=== PATIENT | male | born 2000 | race African-American/Black ===

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

== ENCOUNTER 2021-05-27 23:54 | Emergency (ER) | payer OTHER ==
[~2021-05-27] VITALS: Ht 182.9 cm; Wt 85.0 kg
[~2021-05-27 23:54] MED LIST: ALBU8HFA IH
[2021-05-27 23:56] VITALS: BP 131/62
[2021-05-28 00:33] LABS: COVID AG,FIA SOURCE NASOPHARYNGEAL
== END 2021-05-28 01:22 | disposition home or self-care (01) ==
LOC: EMS 23:55
DX: U07.1 COVID-19 (principal)
CPT/HCPCS: 87426; 99283; U0003

== ENCOUNTER 2021-11-25 10:58 | Emergency (ER) | payer OTHER ==
[~2021-11-25] VITALS: Ht 185.4 cm; Wt 81.8 kg
[2021-11-25] MEDS ORDERED: ACETAMINOPHEN 325 MG TABLET PO ONE (12:00)
[2021-11-25] MEDS ORDERED: IBUPROFEN 400 MG TABLET PO ONE (12:00)
[2021-11-25 16:03] VITALS: BP 135/76
== END 2021-11-25 16:08 | disposition home or self-care (01) ==
LOC: EMS 10:58
DX: S60.012A Contusion of left thumb without damage to nail, initial encounter (principal); J45.909 Unspecified asthma, uncomplicated; X58.XXXA Exposure to other specified factors, initial encounter; Y93.89 Activity, other specified; Y92.89 Other specified places as the place of occurrence of the external cause; Y99.8 Other external cause status
CPT/HCPCS: 10060; 11740; 99283; 99284

== ENCOUNTER 2022-02-17 01:04 | Emergency (ER) | payer OTHER ==
[~2022-02-17] VITALS: Ht 182.9 cm; Wt 75.0 kg
[2022-02-17 01:10] VITALS: BP 116/63
[2022-02-17] MEDS ORDERED: POVIDONE-IODINE 10% 15 ML SOLUTION UD ONE (02:40)
== END 2022-02-17 03:55 | disposition home or self-care (01) ==
LOC: EMS 01:05
DX: S60.457A Superficial foreign body of left little finger, initial encounter (principal); S00.83XA Contusion of other part of head, initial encounter; J45.909 Unspecified asthma, uncomplicated; V89.2XXA Person injured in unspecified motor-vehicle accident, traffic, initial encounter; Y93.89 Activity, other specified; Y92.89 Other specified places as the place of occurrence of the external cause; Y99.8 Other external cause status
CPT/HCPCS: 70450; 99284

== ENCOUNTER 2022-03-22 19:48 | Emergency (ER) | payer OTHER ==
[~2022-03-22] VITALS: Ht 180.3 cm; Wt 75.9 kg
[2022-03-22] MEDS ORDERED: IBUPROFEN 600 MG TABLET PO ONE (20:15)
[2022-03-22] MEDS ORDERED: ACETAMINOPHEN 500 MG TABLET PO ONE (20:15)
[2022-03-22] MEDS ORDERED: SODIUM CHLORIDE 0.9% 2,000 ML IV ONE (20:15)
[2022-03-22 20:33] LABS: BASOPHILS % (AUTO) 0.5 % (0.0-2.0); EOSINOPHILS % (AUTO) 1.9 % (1.0-6.0); HEMATOCRIT 43.4 % (41-53); HEMOGLOBIN 14.3 g/dL (13.5-17.5); LYMPHOCYTES # (AUTO) 1.8 K/uL (1.0-4.8); LYMPHOCYTES % (AUTO) 18.8 % (22.0-44.0); MEAN CORPUSCULAR HEMOGLOBIN 29.1 pg (26.0-34.0); MEAN CORPUSCULAR HGB CONC 32.9 G/dL (31.0-37.0); MEAN CORPUSCULAR VOLUME 89 fL (80-100); MONOCYTES # (AUTO) 0.6 K/uL (0.1-1.0); MONOCYTES % (AUTO) 6.4 % (2.0-9.0); NEUTROPHILS # (AUTO) 6.8 K/uL (1.8-7.7); NEUTROPHILS % (AUTO) 72.4 % (40.0-70.0); PLATELET COUNT (AUTO) 361 K/uL (150-450); RED CELL DISTRIBUTION WIDTH 12.6 % (11.5-14.5)
[2022-03-22 20:44] LABS: ANION GAP 4 mmol/L (8-16); CALCIUM, TOTAL 9.5 mg/dL (8.8-10.5); CARBON DIOXIDE 33 mmol/L (22-29); CHLORIDE 102 mmol/L (98-107); CREATININE 1.16 mg/dL (0.60-1.30); GLOMERULAR FILTR. RATE CALC > 60 mL/min (>60); GLUCOSE,RANDOM 98 mg/dL (70-110); POTASSIUM 4.5 mmol/L (3.5-5.1); SODIUM SERUM 139 mmol/L (136-145); UREA NITROGEN, BLOOD 11 mg/dL (7-18)
[2022-03-22 20:48] LABS: ALANINE AMINOTRANSFERASE 34 U/L (12-78); ALKALINE PHOSPHATASE 68 U/L (46-116); ASPARTATE AMINOTRANSFERASE 28 U/L (15-37); BILIRUBIN,TOTAL 0.3 mg/dL (0.1-1.0); TOTAL PROTEIN, SERUM 7.4 g/dL (6.4-8.2)
[2022-03-22 20:52] VITALS: BP 137/70
[2022-03-22] MEDS ORDERED: ACET-66 PO (21:28)
[2022-03-22] MEDS ORDERED: IBUP-1554 PO (21:28)
== END 2022-03-22 22:10 | disposition home or self-care (01) ==
LOC: EMS 19:49
DX: S20.211A Contusion of right front wall of thorax, initial encounter (principal); R55 Syncope and collapse; B34.9 Viral infection, unspecified; R51.9 Headache, unspecified; W18.39XA Other fall on same level, initial encounter; Y93.89 Activity, other specified; Y92.89 Other specified places as the place of occurrence of the external cause; Y99.0 Civilian activity done for income or pay
CPT/HCPCS: 99284; 96360; 80053; 85025; 36415; 93005; J7030

== ENCOUNTER 2022-05-30 14:26 | Emergency (ER) | payer OTHER ==
[~2022-05-30] VITALS: Ht 182.9 cm; Wt 83.2 kg
[~2022-05-30 14:26] MED LIST changes: +ACET-66 PO; +IBUP-1554 PO
[2022-05-30 14:39] VITALS: BP 133/65
[2022-05-30] MEDS ORDERED: LIDOCAINE 1% 10 ML VIAL SQ ONE (15:00)
== END 2022-05-30 15:15 | disposition home or self-care (01) ==
LOC: EMS 14:27
DX: S90.211A Contusion of right great toe with damage to nail, initial encounter (principal); J45.909 Unspecified asthma, uncomplicated; W19.XXXA Unspecified fall, initial encounter; Y93.89 Activity, other specified; Y92.89 Other specified places as the place of occurrence of the external cause; Y99.8 Other external cause status
CPT/HCPCS: 99284; 11740; J3490

== ENCOUNTER 2022-06-12 03:26 | Emergency (ER) | payer OTHER ==
[~2022-06-12] VITALS: Ht 185.4 cm; Wt 83.2 kg
[~2022-06-12 03:26] MED LIST changes: -ACET-66 PO; -IBUP-1554 PO
[2022-06-12 03:29] VITALS: BP 124/70
== END 2022-06-12 04:50 | disposition left against medical advice (07) ==
LOC: EMS 03:27
DX: R11.2 Nausea with vomiting, unspecified (principal); Z53.21 Procedure and treatment not carried out due to patient leaving prior to being seen by health care provider

== ENCOUNTER 2024-04-30 11:39 | Emergency (ER) | payer OTHER ==
[~2024-04-30] VITALS: Ht 183.5 cm; Wt 81.8 kg
[~2024-04-30 11:39] MED LIST changes: +ALBU18HF12 IH; -ALBU8HFA IH
[2024-04-30 11:55] VITALS: BP 140/89; TEMP 98.1
[2024-04-30 12:54] LABS: COVID AG,FIA SOURCE NASAL SWAB
[2024-04-30 13:13] LABS: INFLUENZA TYPE A NEGATIVE FOR TYPE A (NEGATIVE); INFLUENZA TYPE B NEGATIVE FOR TYPE B (NEGATIVE); SARS-COV2 (COVID) ANTIGEN,FIA Negative (Negative)
[2024-04-30] MEDS: ALBUTEROL SULFATE HFA 90 MCG/PUFF 8 GM INHALER IH ONE (15:38)
[2024-04-30] MEDS: ALBUTEROL SULFATE 2.5 MG/0.5 ML NEB SOLUTION NEB ONE (15:38)
[2024-04-30] MEDS: IPRATROPIUM BROMIDE 0.5 MG/2.5 ML NEB SOLUTION NEB ONE (15:38)
[2024-04-30] MEDS ORDERED: PRED-554 PO (15:40)
[2024-04-30] MEDS ORDERED: ALBU2.5V39 NEB (15:40)
[2024-04-30 15:42] VITALS: PULSE 78; RESP 18; O2SAT 96
[2024-04-30 15:43] VITALS: PULSE 78; RESP 17; O2SAT 96
[2024-04-30 15:52] VITALS: PULSE 84; RESP 16; O2SAT 99
[2024-04-30] MEDS: PredniSONE 20 MG TABLET PO ONE (16:07)
== END 2024-04-30 16:36 | disposition home or self-care (01) ==
LOC: EMS 11:39
DX: J45.901 Unspecified asthma with (acute) exacerbation (principal); R09.89 Other specified symptoms and signs involving the circulatory and respiratory systems; Z20.822 Contact with and (suspected) exposure to COVID-19
CPT/HCPCS: 99283; 87426; 87804; 94640; J7512; J3535